=== PATIENT | male | born 1995 | race Caucasian/White ===

== ENCOUNTER 2020-06-29 02:48 | Inpatient (IN) ==
[2020-06-29 04:17] LABS: ABS Monocytes 0.3 10^3/ul (0-0.8); ABS Neutrophils 1.9 10^3/ul (1.5-7.7); Hematocrit 44 % (42-52); Hemoglobin 14.8 g/dL (14.0-18.0); Lymphocyte % 31.3 %; Mean Corpuscular HGB Conc 33 g/dL (31-36); Mean Corpuscular Hemoglobin 29 pg (27-31); Mean Corpuscular Volume 89 fL (80-94); Mean Platelet Volume 8.7 fL (7.4-10.4); Nucleated Red Blood Cells % 0.1; Platelet Count 190 10^3/uL (150-450); Red Blood Count 5.01 10^6 /uL (4.18-5.48); Red Cell Distribution Width 13 % (10-15); White Blood Count 3.1 10^3/uL (3.5-10.8)
[2020-06-29 04:25] LABS: INR 1.35 (0.82-1.09)
[2020-06-29 04:36] LABS: Albumin 4.1 g/dL (3.2-5.2); Albumin/Globulin Ratio 1.3 (1-3); BUN/Creatinine Ratio 16.2 (8-20); C Reactive Protein 13.76 mg/L (<8.01); Calcium 8.9 mg/dL (8.6-10.3); EGFR African American 114.4 (>60); EGFR Non-African American 94.5 (>60); Globulin 3.1 g/dL (2-4); Potassium 3.8 mmol/L (3.5-5.0); Total Bilirubin 0.5 mg/dL (0.2-1.0); Total Protein 7.2 g/dL (6.4-8.9)
[2020-06-29] MEDS ORDERED: Ondansetron 4 mg VIAL 2 MG/ML 2 ml VIAL IV PRN (05:17)
[2020-06-29] MEDS ORDERED: Albuterol HFA INHALER 8 gm MDI INH PRN (05:17)
[2020-06-29] MEDS ORDERED: Famotidine IV 10 MG/ML 2 ml VIAL (20 mg) ONE (05:40)
[2020-06-29] MEDS ORDERED: Remdesivir 5 MG/ML LIQ IV Vial 200 MG in NS 0.9% 250 ml 210 ML IV ONE (06:00)
[2020-06-29] MEDS: Enoxaparin 60 MG/0.6 ML SYR SUBCUT SCH ×2 (07:32→20:02)
[2020-06-29 08:26] LABS: Influenza A Molecular Negative (Negative); Influenza B Molecular Negative (Negative)
[2020-06-30 05:30] LABS: ABS Lymphocytes 2.1 10^3/ul (1.0-4.8); ABS Monocytes 0.6 10^3/ul (0-0.8); ABS Neutrophils 3.1 10^3/ul (1.5-7.7); Hematocrit 44 % (42-52); Hemoglobin 14.7 g/dL (14.0-18.0); Lymphocyte % 35.8 %; Mean Corpuscular HGB Conc 34 g/dL (31-36); Mean Corpuscular Hemoglobin 30 pg (27-31); Mean Corpuscular Volume 88 fL (80-94); Mean Platelet Volume 8.2 fL (7.4-10.4); Nucleated Red Blood Cells % 0.1; Platelet Count 226 10^3/uL (150-450); Red Blood Count 4.92 10^6 /uL (4.18-5.48); Red Cell Distribution Width 14 % (10-15); White Blood Count 5.9 10^3/uL (3.5-10.8)
[2020-06-30 05:51] LABS: Albumin/Globulin Ratio 1.3 (1-3); BUN/Creatinine Ratio 18.5 (8-20); Calcium 8.9 mg/dL (8.6-10.3); EGFR African American 124.5 (>60); EGFR Non-African American 102.9 (>60); Globulin 3.1 g/dL (2-4); Indirect Bilirubin 0.3 mg/dL (0.3-1.0); Potassium 3.9 mmol/L (3.5-5.0); Total Bilirubin 0.4 mg/dL (0.2-1.0); Total Protein 7.1 g/dL (6.4-8.9)
[2020-06-30] MEDS: Remdesivir 5 MG/ML LIQ IV Vial 100 MG in NS 0.9% 250 ml 230 ML IV SCH (09:30)
[2020-06-30] MEDS: Enoxaparin 60 MG/0.6 ML SYR SUBCUT SCH ×2 (09:30→19:25)
[2020-07-01] MEDS: Enoxaparin 60 MG/0.6 ML SYR SUBCUT SCH ×2 (09:30→19:58)
[2020-07-01] MEDS: Remdesivir 5 MG/ML LIQ IV Vial 100 MG in NS 0.9% 250 ml 230 ML IV SCH (09:30)
[2020-07-01 11:13] LABS: Albumin 3.8 g/dL (3.2-5.2); Albumin/Globulin Ratio 1.4 (1-3); BUN/Creatinine Ratio 20.3 (8-20); Calcium 8.8 mg/dL (8.6-10.3); EGFR African American 148.4 (>60); EGFR Non-African American 122.6 (>60); Globulin 2.7 g/dL (2-4); Potassium 3.5 mmol/L (3.5-5.0); Total Bilirubin 0.4 mg/dL (0.2-1.0); Total Protein 6.5 g/dL (6.4-8.9)
[2020-07-02] MEDS: Enoxaparin 60 MG/0.6 ML SYR SUBCUT SCH (09:47)
[2020-07-02] MEDS: Remdesivir 5 MG/ML LIQ IV Vial 100 MG in NS 0.9% 250 ml 230 ML IV SCH (09:48)
[2020-07-02 15:12] VITALS: BP 107/59
== END 2020-07-02 16:25 | disposition home or self-care (01) | DRG 137 ==
LOC: ED 02:48 → MED 05:10
PROVIDERS: ADMIT Pediatrics; ATTEND Student in an Organized Health Care Education/Training Program